=== PATIENT | male | born 1965 | race Caucasian/White ===

== ENCOUNTER 2016-12-24 21:42 | Emergency (ER) | payer BC ==
[~2016-12-24] VITALS: Ht 190.5 cm; Wt 100.0 kg
[~2016-12-24 21:42] MED LIST: ALBU2.5V3 NEB; ASPI325T4 PO; ASPI81TA3 PO; BECL8.7A INH; BENA20TA48 PO; CHLO25CA9 PO; FAMO40TA52 PO; LORA-444 PO; MAG355OR14 PO; MEVA40 PO; NEPH PO
[2016-12-24] MEDS ORDERED: SOD CHLORIDE 0.9% 1,000 ML IV STA (21:48)
[2016-12-24 21:54] VITALS: Ht 190.5 cm; Wt 100.0 kg
[2016-12-24 22:39] LABS: BASOPHIL # 0.2 10^3/ul (0.0-0.1); BASOPHILS % 1.1 % (0.0-2.0); EOSINOPHILS # 0.3 10^3/ul (0.0-0.5); EOSINOPHILS % 2.1 % (0.0-7.0); HEMATOCRIT 50.7 % (42.0-52.0); HEMOGLOBIN 15.9 g/dl (14.0-18.0); LYMPHOCYTES # 2.4 10^3/ul (0.8-2.9); LYMPHOCYTES % 16.3 % (15.0-51.0); MEAN CORPUSCULAR HEMOGLOBIN 28.3 pg (29.0-33.0); MEAN CORPUSCULAR HGB CONC 31.4 g/dl (32.0-37.0); MEAN CORPUSCULAR VOLUME 90.4 fl (82.0-101.0); MEAN PLATELET VOLUME 9.1 fl (7.4-10.4); MONOCYTE # 0.7 10^3/ul (0.3-0.9); MONOCYTES % 4.9 % (0.0-11.0); NEUTROPHIL # 11.3 10^3/ul (1.6-7.5); NEUTROPHILS % 75.1 % (39.0-77.0); PLATELET COUNT 271 10^3/UL (140-415); RED BLOOD COUNT 5.61 10^6/ul (4.70-6.10); RED CELL DISTRIBUTION WIDTH 14.5 % (11.5-14.5)
[2016-12-24] MEDS ORDERED: LIT300 PO (22:39)
[2016-12-24] MEDS ORDERED: QUET100T PO (22:40)
[2016-12-24] MEDS ORDERED: ESCI10TA48 PO (22:43)
[2016-12-24 23:05] LABS: ALANINE AMINOTRANSFERASE 48 IU/L (13-69); ALBUMIN 4.9 g/dl (3.3-4.9); ALBUMIN/GLOBULIN RATIO 1.63; ALKALINE PHOSPHATASE 80 IU/L (42-121); ANION GAP 19 (8-16); ASPARTATE AMINO TRANSFERASE 31 IU/L (15-46); BILIRUBIN,INDIRECT 0.2 mg/dl (0-1.1); BILIRUBIN,TOTAL 0.2 mg/dl (0.2-1.3); BLOOD UREA NITROGEN 12 mg/dl (7-20); CALCIUM 9.5 mg/dl (8.4-10.2); CARBON DIOXIDE 22 mmol/L (21-31); CHLORIDE 110 mmol/L (97-110); CREATININE 0.82 mg/dl (0.61-1.24); GLUCOSE 117 mg/dl (70-220); POTASSIUM 4.6 mmol/L (3.5-5.1); SODIUM 146 mmol/L (135-144); TOTAL PROTEIN 7.9 g/dl (6.1-8.1)
[2016-12-24 23:08] LABS: ACETAMINOPHEN < 10.0 ug/ml (10.0-30.0); SALICYLATE < 1.0 mg/dl (5.0-30.0)
--- NOTE | 2016-12-24 23:20 | ERA ---
ER Documentation Chief Complaint Date/Time DATE: 12/24/16 TIME: 23:17 Chief Complaint suicide attempt with 20 benazipril 20mg and 1 pint of liquor HPI Patient is a 51-year-old male with depression and hypertension who presents with an overdose. The patient overdosed on benazepril 20 mg tablets. He took 30 tablets. He drinks alcohol as well. He was brought in by ambulance and he called 911. He said that he took the pills "a couple of hours ago". He had nausea and vomiting afterwards. This was a suicide attempt because he is recently homeless and his of 25 years left him because of his alcohol abuse. Upon review of old medical records this the patient's 6 visit to the ER since 2014 and review of the emergency department formation exchange system shows been to 5 separate emergency department. ROS All systems reviewed and are negative except as per history of present illness. Medications Home Meds Reported Medications Escitalopram Oxalate* (Escitalopram Oxalate*) 10 Mg Tablet, 10 MG PO DAILY, #30 TAB 12/24/16 Quetiapine Fumarate* (Seroquel*) 100 Mg Tablet, 100 MG PO HS, #30 TAB 12/24/16 [place] Carbonate* ([place]*) 300 Mg Cap, 300 MG PO BID, CAP take 300mg-qam and 600mg-qhs 12/24/16 Lovastatin (Lovastatin) 40 Mg Tablet, 40 MG PO HS, TAB 05/26/15 Benazepril Hcl* (Benazepril Hcl*) 20 Mg Tablet, 20 MG PO DAILY, #30 TAB 05/26/15 Discontinued Reported Medications Beclomethasone Dip* (Qvar 40*) 7.3 Gm Inha, 2 INH BID, #1 INHALER 05/26/15 Albuterol Sulfate* (Albuterol Sulfate* Neb) 0.083%-3 Ml Neb, 1.25 NEB Q3H Y for WHEEZING AND SOB, #30 VIAL 05/26/15 Aspirin* (Aspirin* Chew) 81 Mg Tab.chew, 81 MG PO DAILY, TAB.CHEW 05/26/15 Discontinued Scripts Famotidine* (Famotidine*) 40 Mg Tablet, 40 MG PO HS, #30 TAB Prov:TADEO MAK MD 01/27/16 Mag Hydrox/Al Hydrox/Simeth (Maalox Advanced Suspension) 355 Ml Oral.susp, 2 TSP PO TID for PAIN, #24 OZ Prov:TADEO MAK MD 01/27/16 Aspirin* (Aspirin*) 325 Mg Tablet, 81 MG PO DAILY, #30 TAB Prov:TADEO MAK MD 01/27/16 Chlordiazepoxide* (Chlordiazepoxide*) 25 Mg Capsule, 25 MG PO Q8 Y for CONTROL WITHDRAWAL SYMPTOMS, #15 CAP Prov:TADEO MAK MD 01/27/16 Multivit/Ca Carb/B Cmplx/Fa* ([place]zabel-Paresh*) 1 Tab Tab, 1 TAB PO DAILY for 30 Days , TAB Prov:DARIAN JJ MD 05/28/15 Chlordiazepoxide* (Chlordiazepoxide*) 25 Mg Cap, 25 MG PO BID for 2 Days, CAP Prov:DARIAN JJ MD 05/28/15 Lorazepam* (Ativan*) 2 Mg Tablet, 2 MG PO BID Y for ANXIETY, #7 TAB Prov:MIGEL MALAGON PA-C 04/13/15 Allergies Allergies: Coded Allergies: No Known Allergy (Unverified , 12/24/16) PMhx/Soc History of Surgery: No Anesthesia Reaction: No Hx Neurological Disorder: Yes Hx Respiratory Disorders: No Hx Cardiac Disorders: Yes (htn) Hx Psychiatric Problems: Yes (DEPRESSION, multiple suicide attempts) Hx Miscellaneous Medical Probl: Yes (ETOH ABUSE.) Hx Alcohol Use: Yes (1 pint/daily) Hx Substance Use: No Hx Tobacco Use: Yes Smoking Status: Current every day smoker FmHx Family History: No diabetes Physical Exam Vitals Vital Signs Date Time Temp Pulse Resp B/P Pulse Ox O2 Delivery O2 Flow Rate FiO2 12/24/16 21:54 98.0 80 20 150/95 97 Physical Exam Const: Moderate distress secondary to nausea and vomiting Head: Atraumatic Eyes: Normal Conjunctiva ENT: Normal External Ears, Nose and Mouth. Neck: Full range of motion..~ No meningismus. Resp: Clear to auscultation bilaterally Cardio: Regular rate and rhythm, no murmurs Abd: Soft, non tender, non distended. Normal bowel sounds Skin: No petechiae or rashes Back: No midline or flank tenderness Ext: No cyanosis, or edema Neur: Awake and alert Psych: Positive suicidal ideation with attempt, depressed affect Result Diagram: 12/24/16222712/24/162227 Results 24 hrs Laboratory Tests Test 12/24/16 22:28 White Blood Count 15.010^3/ul Red Blood Count 5.6110^6/ul Hemoglobin 15.9g/dl Hematocrit 50.7% Mean Corpuscular Volume 90.4fl Mean Corpuscular Hemoglobin 28.3pg Mean Corpuscular Hemoglobin Concent 31.4g/dl Red Cell Distribution Width 14.5% Platelet Count 96033^3/UL Mean Platelet Volume 9.1fl Neutrophils % 75.1% Lymphocytes % 16.3% Monocytes % 4.9% Eosinophils % 2.1% Basophils % 1.1% Nucleated Red Blood Cells % 0.0/100WBC Neutrophils # 11.310^3/ul Lymphocytes # 2.410^3/ul Monocytes # 0.710^3/ul Eosinophils # 0.310^3/ul Basophils # 0.210^3/ul Nucleated Red Blood Cells # 0.010^3/ul Sodium Level 146mmol/L Potassium Level 4.6mmol/L Chloride Level 110mmol/L Carbon Dioxide Level 22mmol/L Anion Gap 19 Blood Urea Nitrogen 12mg/dl Creatinine 0.82mg/dl Glucose Level 117mg/dl Calcium Level 9.5mg/dl Total Bilirubin 0.2mg/dl Direct Bilirubin 0.00mg/dl Indirect Bilirubin 0.2mg/dl Aspartate Amino Transf (AST/SGOT) 31IU/L Alanine Aminotransferase (ALT/SGPT) 48IU/L Alkaline Phosphatase 80IU/L Total Protein 7.9g/dl Albumin 4.9g/dl Globulin 3.00g/dl Albumin/Globulin Ratio 1.63 Salicylates Level < 1.0mg/dl Acetaminophen Level < 10.0ug/ml Ethyl Alcohol Level 240.0mg/dl Current Medications Medications (Trade) Dose Ordered Sig/Hawk Route PRN Reason Start Time Stop Time Status Last Admin Dose Admin Sodium Chloride (NS) 1,000 ml @ 1,000 mls/hr Q1H STAT IV 12/24/16 21:48 12/24/16 22:47 DC 12/24/16 22:43 Procedures/MDM EKG read by me, normal sinus rhythm, no ST elevations or depressions, overall impression sinus rhythm. MDM: Patient presents with intentional overdose of benazepril and alcohol. I spoke with poison control who said as long as blood pressure was OK for 2-4 hours that this would be a non toxic ingestion. Patient will need transfer to inpatient psych for further treatment. He is now medically clear. Patient was given 1L NSS for fluid resuscitation. Dr. Berry from psych will do an evaluation. Patient will need repeat alcohol level prior to transfer. Critical care time 35 min excluding all billable procedures. Departure Diagnosis: Primary Impression: Alcohol intoxication Qualified Code: F10.920 - Alcoholic intoxication without complication Additional Impressions: Intentional drug overdose Qualified Code: T50.902A - Intentional drug overdose, initial encounter Suicide attempt by substance overdose Qualified Code: T65.92XA - Suicide attempt by substance overdose, initial encounter Condition: GERARDO Arias MD Dec 24, 2016 23:20
--- NOTE | 2016-12-25 01:48 | PSY ---
Date/Time of Note Date/Time of Note DATE: 12/25/16 TIME: 00:10 Psychiatric Subjective Eval Consent Pt consented to telemedicine: Yes Subjective Evaluation Patient location: emergency Chief Complaint: suicide attempt with 20 benazipril 20mg and 1 pint of liquor Reason for consult: i am suicidal History of present illness patient is a 51 yo male with PPH of depression , anxiety and alcohol dependence who was brought in to the ER due to attempted suicide by overdosing on pills and alcohol. patient states that he wants to because he lost his family and his carreer due to his alcohol abuse. he still wants to and states that he has been feeling depressed, hopeless and helpless for months, he has a place to stay now , he cannot sleep, he is irritable , and anxious, continues to drink alcohol, denies any past or current manic or psychotic symptoms, states that he has tried to kill himself before. he has no motivation for life, for weeks, low energy and racing thoughts. Past psychiatric history depression , anxiety Hospitalization: yes Family History denies Medical history Problems Medical Problems: (1) Abdominal pain Status: Acute (2) Alcohol abuse Status: Acute (3) Alcohol intoxication Status: Acute (4) Alcohol withdrawal syndrome Status: Acute (5) Chest pain Status: Acute (6) Dehydration Status: Acute (7) Encounter for removal of sutures Status: Acute (8) Facial laceration Status: Acute (9) Intentional drug overdose Status: Acute (10) Patient left without being seen Status: Acute (11) Suicide attempt by substance overdose Status: Acute Allergies: Coded Allergies: No Known Allergy (Unverified , 12/24/16) Substance Abuse Substance abuse history: Yes (alcohol ) Prior substance abuse treatmen: Yes Social History Marital status: Level of education: hs DPA/Conservatorship: No Occupation/Group Home: unemployed Psychiatric Objective Eval Review of Systems: Review of Systems: Not Applicable Physical Examination: Physical Examination: Applicable Sleep: Insomnia Appetite: Decreased Energy: Decreased Interest: Decreased Mental Status Examination: Appearance: Disheveled Eye Contact: Good Psychomotor Activity: Normal Behavior: Cooperative Speech: Clear AFFECT: Depressed Mood: Depressed Though Process: Linear Suicidal: Yes Homicidal: No On 72 hour hold: No Orientation: x3 Cognition: Alert Insight: Impared Judgement: Impared Laboratory Results Laboratory Tests Test 10/10/17 22:28 White Blood Count 15.010^3/ul Red Blood Count 5.6110^6/ul Hemoglobin 15.9g/dl Hematocrit 50.7% Mean Corpuscular Volume 90.4fl Mean Corpuscular Hemoglobin 28.3pg Mean Corpuscular Hemoglobin Concent 31.4g/dl Red Cell Distribution Width 14.5% Platelet Count 60620^3/UL Mean Platelet Volume 9.1fl Neutrophils % 75.1% Lymphocytes % 16.3% Monocytes % 4.9% Eosinophils % 2.1% Basophils % 1.1% Nucleated Red Blood Cells % 0.0/100WBC Neutrophils # 11.310^3/ul Lymphocytes # 2.410^3/ul Monocytes # 0.710^3/ul Eosinophils # 0.310^3/ul Basophils # 0.210^3/ul Nucleated Red Blood Cells # 0.010^3/ul Sodium Level 146mmol/L Potassium Level 4.6mmol/L Chloride Level 110mmol/L Carbon Dioxide Level 22mmol/L Anion Gap 19 Blood Urea Nitrogen 12mg/dl Creatinine 0.82mg/dl Glucose Level 117mg/dl Calcium Level 9.5mg/dl Total Bilirubin 0.2mg/dl Direct Bilirubin 0.00mg/dl Indirect Bilirubin 0.2mg/dl Aspartate Amino Transf (AST/SGOT) 31IU/L Alanine Aminotransferase (ALT/SGPT) 48IU/L Alkaline Phosphatase 80IU/L Total Protein 7.9g/dl Albumin 4.9g/dl Globulin 3.00g/dl Albumin/Globulin Ratio 1.63 Salicylates Level < 1.0mg/dl Acetaminophen Level < 10.0ug/ml Ethyl Alcohol Level 240.0mg/dl Assessment and Plan Assessment/Diagnosis [place] I: 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 alcohol dependance anxiety do nos [place] II: deferred [place] III: as per record [place] IV: poor social support [place] V: gaf 25 Recommendation/Plan Medication Management lexapro 10 mg po qd seroquel 100 mg po qhs Follow-up/Disposition Please admit patient on unvoluntary status due to Danger to self, In my opinion, patient currently MEETS criterion for inpatient care and CANNOT be safely treated at a lower level of care today as evidenced by the following risk factors: current suicidal attempt Current and Recent Suicidal Ideation Previous suicide attempt and severe self-destructive behavior Intense feelings of hopelessness and lack of future orientation. Significant recent DETERIORATION in function, behavior and thought processes Substance ABUSE in conjunction with another psychiatric disorder Patient has failed outpatient and requires further inpatient assessment Medication changes require observation unavailable at a lower level of care. 5150 Recommendation: AKASH Tejeda MD Dec 25, 2016 00:20
[2016-12-25 02:07] LABS: BARBITURATES Negative (NEGATIVE); BENZODIAZEPINES Negative (NEGATIVE); CANNABINOIDS Negative (NEGATIVE); COCAINE Negative (NEGATIVE); OPIATES Negative (NEGATIVE)
[2016-12-25] MEDS ORDERED: ONDANSETRON 4 MG INJ IV ONE (02:48)
[2016-12-25 02:58] LABS: ADD UMIC YES; UR ASCORBIC ACID NEGATIVE (NEGATIVE); UR BILIRUBIN (Dip) NEGATIVE (NEGATIVE); UR BLOOD (Dip) 1+ mg/dL (NEGATIVE); UR CLARITY CLEAR (CLEAR); UR COLOR YELLOW (YELLOW); UR GLUCOSE (Dip) NEGATIVE (NEGATIVE); UR KETONES (Dip) NEGATIVE (NEGATIVE); UR LEUKOCYTE ESTERASE (Dip) NEGATIVE Leu/ul (NEGATIVE); UR MUCUS FEW /HPF (NONE SEEN); UR NITRITE (Dip) NEGATIVE (NEGATIVE); UR RBC 7 /HPF (0-5); UR SPECIFIC GRAVITY (Dip) 1.013 (1.003-1.030); UR TOTAL PROTEIN (Dip) NEGATIVE (NEGATIVE); UR UROBILINOGEN (Dip) NEGATIVE (NEGATIVE)
[2016-12-25] MEDS ORDERED: LORAZEPAM 2 MG INJ IV ONE (03:00)
[2016-12-25] MEDS ORDERED: LORAZEPAM 1 MG TAB PO ONE ×3 (09:00→20:00)
[2016-12-25] MEDS ORDERED: ESCITALOPRAM 10 MG TAB PO SCH (09:00)
--- NOTE | 2016-12-25 19:49 | EN ---
Date/Time of Note Date/Time of Note DATE: 12/25/16 TIME: 19:48 ER Progress Note Patient is a 51-year-old male who is on a 5150 and has been accepted to psychiatric facility. The patient reports having alcohol withdrawal and history of alcohol withdrawal seizures. He states that he is currently having visual hallucinations of dark spots in his visual field and feels tremulous. He states that this is consistent with prior episodes of alcohol withdrawal. He has no tremor on exam, appears calm and communicative, and has no tachycardia. I will give him an extra dose of 1 mg Ativan p.o., and will continue monitoring him for signs of withdrawal. I believe he is stable for outpatient treatment for alcohol withdrawal. ISABEL OLIVEIRA MD Dec 25, 2016 19:49
[2016-12-25] MEDS ORDERED: QUETIAPINE 100 MG TAB PO SCH (21:00)
[2016-12-25 22:00] VITALS: BP 130/71; PULSE 72; RESP 16; TEMP 98.8
== END 2016-12-25 22:00 ==
LOC: E/R 21:42
DX: F10.920 Alcohol use, unspecified with intoxication, uncomplicated (principal); T46.4X2A Poisoning by angiotensin-converting-enzyme inhibitors, intentional self-harm, initial encounter; I10 Essential (primary) hypertension; F17.210 Nicotine dependence, cigarettes, uncomplicated; X58.XXXA Exposure to other specified factors, initial encounter; Y92.9 Unspecified place or not applicable; Z79.82 Long term (current) use of aspirin
CPT/HCPCS: 36415; 80053; 80306; 80307; 81001; 85025; 93005; 96374; 96375; 99291; J2060; J2405; J7030; Z7610

== ENCOUNTER 2018-06-28 21:47 | Observation (INO) | payer BC ==
[~2018-06-28] VITALS: Ht 188 cm; Wt 90.4 kg
[~2018-06-28 21:47] MED LIST changes: -ALBU2.5V3 NEB; -ASPI325T4 PO; -ASPI81TA3 PO; -BECL8.7A INH; +BENA20TA4 PO; -BENA20TA48 PO; -CHLO25CA9 PO; +ESCI10TA48 PO; -FAMO40TA52 PO; +LIT300 PO; -LORA-444 PO; -MAG355OR14 PO; -NEPH PO; +QUET100T PO
[2018-06-28 21:48] VITALS: Ht 188 cm; Wt 90.4 kg
[2018-06-28] MEDS ORDERED: ONDANSETRON 4 MG INJ IV STA (23:14)
[2018-06-28] MEDS ORDERED: morphine 4 MG/ML VIAL IV STA (23:14)
[2018-06-29] MEDS ORDERED: ACETAMINOPHEN 325 MG TAB PO ONE (03:00)
--- NOTE | 2018-06-29 05:16 | ERD ---
ER Documentation Chief Complaint Chief Complaint CHEST PAIN RADIATING TO LT ARM, SOB HPI This is a very pleasant 51-year-old chest pain and radiates to his left arm with associated shortness of breath. Pain is mild to moderate intensity no exacerbating relieving factors. No nausea no vomiting. No chills. No other current complaints ROS All systems reviewed and are negative except as per history of present illness. Medications Home Meds Reported Medications Escitalopram Oxalate* (Escitalopram Oxalate*) 10 Mg Tablet, 10 MG PO DAILY, #30 TAB 12/24/16 Quetiapine Fumarate* (Seroquel*) 100 Mg Tablet, 100 MG PO HS, #30 TAB 12/24/16 [place] Carbonate* ([place]*) 300 Mg Cap, 300 MG PO BID, CAP take 300mg-qam and 600mg-qhs 12/24/16 Lovastatin (Lovastatin) 40 Mg Tablet, 40 MG PO HS, TAB 05/26/15 Benazepril Hcl* (Benazepril Hcl*) 20 Mg Tablet, 20 MG PO DAILY, #30 TAB 05/26/15 Allergies Allergies: Coded Allergies: No Known Allergy (Unverified , 12/24/16) PMhx/Soc History of Surgery: No Anesthesia Reaction: No Hx Neurological Disorder: Yes Hx Respiratory Disorders: No Hx Cardiac Disorders: Yes (htn) Hx Psychiatric Problems: Yes (DEPRESSION, multiple suicide attempts) Hx Miscellaneous Medical Probl: Yes (ETOH ABUSE.) Hx Alcohol Use: Yes (1 pint/daily) Hx Substance Use: No Hx Tobacco Use: Yes Smoking Status: Current every day smoker Physical Exam Vitals Vital Signs Date Temp Pulse Resp B/P (MAP) Pulse Ox O2 O2 Flow FiO2 Time Delivery Rate 06/29/18 98.5 61 16 128/81 99 Room Air 04:30 (97) 06/29/18 98.4 64 16 143/86 99 Room Air 04:00 (105) 06/29/18 98.5 67 16 164/98 99 Room Air 03:00 (120) 06/29/18 98.5 69 16 169/103 99 Room Air 02:00 (125) 06/28/18 74 16 154/87 99 Room Air 23:28 (109) 06/28/18 98.5 54 17 181/110 95 21:48 (133) Physical Exam Const: No acute distress Head: Atraumatic Eyes: Normal Conjunctiva ENT: Normal External Ears, Nose and Mouth. Neck: Full range of motion. No meningismus. Resp: Clear to auscultation bilaterally Cardio: Regular rate and rhythm, no murmurs Abd: Soft, non tender, non distended. Normal bowel sounds Skin: No petechiae or rashes Back: No midline or flank tenderness Ext: No cyanosis, or edema Neur: Awake and alert Psych: Normal Mood and Affect Result Diagram: 06/28/18 0140 06/28/18 7341 Results 24 hrs Laboratory Tests Test 06/28/18 22:59 06/28/18 23:50 Sodium Level 136 mmol/L Potassium Level 4.7 mmol/L Chloride Level 102 mmol/L Carbon Dioxide Level 24 mmol/L Anion Gap 10 Blood Urea Nitrogen 13 mg/dl Creatinine 0.69 mg/dl Est Glomerular Filtrat Rate mL/min > 60 mL/min Glucose Level 91 mg/dl Calcium Level 9.3 mg/dl Total Bilirubin 0.5 mg/dl Direct Bilirubin 0.00 mg/dl Indirect Bilirubin 0.5 mg/dl Aspartate Amino Transf (AST/SGOT) 33 IU/L Alanine Aminotransferase (ALT/SGPT) 13 IU/L Alkaline Phosphatase 80 IU/L Troponin I 0.023 ng/ml B-Type Natriuretic Peptide 98 PG/ML Total Protein 7.8 g/dl Albumin 4.4 g/dl Globulin 3.40 g/dl Albumin/Globulin Ratio 1.29 White Blood Count 10.5 10^3/ul Red Blood Count 5.15 10^6/ul Hemoglobin 13.9 g/dl Hematocrit 43.1 % Mean Corpuscular Volume 83.7 fl Mean Corpuscular Hemoglobin 27.0 pg Mean Corpuscular Hemoglobin Concent 32.3 g/dl Red Cell Distribution Width 13.0 % Platelet Count 245 10^3/UL Mean Platelet Volume 7.8 fl Immature Granulocytes % 0.400 % Neutrophils % 60.6 % Lymphocytes % 26.9 % Monocytes % 8.3 % Eosinophils % 2.6 % Basophils % 1.2 % Nucleated Red Blood Cells % 0.0 /100WBC Immature Granulocytes # 0.040 10^3/ul Neutrophils # 6.4 10^3/ul Lymphocytes # 2.8 10^3/ul Monocytes # 0.9 10^3/ul Eosinophils # 0.3 10^3/ul Basophils # 0.1 10^3/ul Nucleated Red Blood Cells # 0.0 10^3/ul Current Medications Medications Dose Sig/Hawk Start Time Status Last (Trade) Ordered Route PRN Stop Time Admin Dose Reason Admin Morphine 4 mg ONCE STAT 06/28/18 DC 06/28/18 Sulfate IV 23:14 23:26 (morphine) 06/28/18 23:17 Ondansetron 4 mg ONCE STAT 06/28/18 DC 06/28/18 HCl (Zofran IV 23:14 23:26 Inj) 06/28/18 23:17 650 mg ONCE ONCE 06/29/18 DC 06/29/18 Acetaminophen PO 03:00 03:07 (Tylenol 06/29/18 03:01 Tab) Procedures/MDM EKG: Rate/Rhythm: [Normal Sinus Rhythm] QRS, ST, T-waves: [No changes consistent w/ acute ischemia] Impression: [No evidence of ischemia or arrhythmia] Chest X-ray 1V Interpreted by me: Soft Tissue: No acute abnormalities Bones: No acute abnormalities Mediastinum/Cardiac Silhouette/Lungs: [No acute abnormalities] Medical decision making: Patient's symptoms are concerning for cardiac cause will require inpatient workup and continuous monitoring. Further w/u for ischemia, arrhythmia, PE or dissection will be deferred to the inpatient team. Accepting Care Team: Current data and ongoing care discussed. Time: 5:10 AM Primary Provider: Dr. Clemons Consulting: [[place]] Outstanding Data: none Departure Diagnosis: Primary Impression: Chest pain Chest pain type: unspecified Qualified Codes: R07.9 - Chest pain, unspecified Condition: Stable STEFANIE HALL Jun 29, 2018 05:16
[2018-06-29 05:38] VITALS: PULSE 68
[2018-06-29 05:40] VITALS: BP 158/99; PULSE 69; RESP 20
[2018-06-29] MEDS: KETOROLAC 15 MG INJ IV PRN ×2 (06:34→12:33)
[2018-06-29 07:45] VITALS: BP 123/65; PULSE 70; RESP 20
[2018-06-29 08:24] VITALS: PULSE 77
[2018-06-29] MEDS ORDERED: ESCITALOPRAM 10 MG TAB PO SCH (09:00)
[2018-06-29] MEDS ORDERED: APIXABAN 5 MG TABLET PO SCH (09:00)
[2018-06-29] MEDS ORDERED: BENAZEPRIL 20 MG TAB PO SCH (09:00)
--- NOTE | 2018-06-29 09:26 | PDOCDIS ---
Discharge Instructions CONDITION [id number] Patient Condition: [id number] Good HOME CARE INSTRUCTIONS: [id number] Diet Instructions: [id number] FOLLOW UP/APPOINTMENTS Follow-up Plan pcp 1 week GAYATHRI VALENTINE MD Jun 29, 2018 09:25
--- NOTE | 2018-06-29 10:03 | HP ---
DATE OF ADMISSION: 06/29/2018 CHIEF COMPLAINT: Chest pain. HISTORY OF PRESENT ILLNESS: This is a 53-year-old male with history of hypertension, paroxysmal atri al fibrillation, and hyperlipidemia, presented to the emergency room with complaint of sharp and stab cass chest pain radiating to his left arm. This was associated with shortness of breath. The patien t reports that he was having palpitations as well and suspects that this was due to rapid atrial fibr illation. The patient has no history of coronary artery disease. He denies any associated nausea, v omiting or diaphoresis. Initial evaluation was unremarkable. EKG shows normal sinus rhythm with no ST-T wave changes. Chest x-ray was unremarkable. PAST MEDICAL HISTORY: 1. Hypertension. 2. Hyperlipidemia. 3. Paroxysmal atrial fibrillation. 4. History of arterial thrombosis. 5. Bipolar affective disorder. 6. Chronic pain syndrome. 7. History of narcotic dependence. MEDICATIONS PRIOR TO ADMISSION: 1. Benazepril 20 mg daily. 2. Lovastatin 40 mg at bedtime. 3. Lexapro 10 mg daily. 4. [place] carbonate 300 mg b.i.d. 5. Seroquel 100 mg at bedtime. 6. Eliquis 5 mg p.o. b.i.d. 7. Methadone 44 mg p.o. daily. SOCIAL HISTORY: The patient lives at home. He has a previous history of narcotic abuse and has been on methadone. He admits to smoking half a pack of cigarettes per day. PHYSICAL EXAMINATION: GENERAL: Well-developed, well-nourished male who is in no apparent distress. VITAL SIGNS: Stable. He is afebrile. HEENT: Extraocular muscles intact. Pupils are equal and reactive to light bilaterally. Sclerae are anicteric. Oropharynx is clear and moist. NECK: Supple, no JVD, no carotid bruits. LUNGS: Clear to auscultation bilaterally. CARDIAC: Regular rate and rhythm. No murmurs or gallops. ABDOMEN: Soft, nontender, nondistended, normoactive bowel sounds. EXTREMITIES: No clubbing, cyanosis, or edema. NEUROLOGICAL: Nonfocal. LABORATORY DATA: CBC and basic metabolic panel are within normal limits. BNP is 98. Troponins are 0.023 and 0.019. ASSESSMENT: A 53-year-old male presenting with; 1. Atypical chest pain. 2. Hypertension. 3. Hyperlipidemia. 4. Paroxysmal atrial fibrillation. 5. History of arterial thrombosis. 6. History of narcotic dependence on methadone. 7. Bipolar affective disorder. PLAN: Place in tele observation, resume home medications. Proceed with the Lexiscan stress test. D ischarge planning if the stress test is normal. Dictated By: GAYATHRI JUSTICE/SHIN Conf#: [id number] DID#: [id number]
[2018-06-29] MEDS ORDERED: REGADENOSON 0.4 MG/5 ML SYG ONE (11:02)
--- NOTE | 2018-06-29 12:03 | CONS ---
Assessment/Plan Assessment/Plan Hospital Course (Demo Recall) Chest pain Paroxysmal atrial fibrillation Hypertension -Patient presents with palpitations with sensation of being in atrial fibrillation. He also complains of sharp chest discomfort and arm pain which later resolved. Current ECG with no significant ischemic abnormalities. Serial cardiac enzymes are negative. Patient plan for Lexiscan nuclear perfusion study. Would also obtain echocardiogram. Would add beta-deepak if no contraindication. Consultation Date/Type/Reason Admit Date/Time Jun 29, 2018 at 02:30 Type of Consult Cardiology Reason for Consultation Chest pain Date/Time of Note DATE: 06/29/18 TIME: 11:58 Hx of Present Illness This is a 54-year-old male with past medical history apparently switch fibrillation, hypertension who presents with palpitations and chest pain. Patient felt that he was having an episode of atrial fibrillation. He does have a history of paroxysmal atrial fibrillation. He then developed sharp chest discomfort as well as left arm pain. Symptoms came on at rest. Patient denies exertional chest pain or shortness of breath. Symptoms slowly improved in the hospital. He is active, he does bike ride or walk at least 2-5 miles daily without exertional chest pain or shortness of breath. 12 point review of systems was performed with all pertinent positives and negatives mentioned above and all else is negative Past Medical History Atrial fibrillation Medical History: hypertension Home Meds Reported Medications Escitalopram Oxalate* (Escitalopram Oxalate*) 10 Mg Tablet, 10 MG PO DAILY, #30 TAB 12/24/16 Quetiapine Fumarate* (Seroquel*) 100 Mg Tablet, 100 MG PO HS, #30 TAB 12/24/16 [place] Carbonate* ([place]*) 300 Mg Cap, 300 MG PO BID, CAP take 300mg-qam and 600mg-qhs 12/24/16 Lovastatin (Lovastatin) 40 Mg Tablet, 40 MG PO HS, TAB 05/26/15 Benazepril Hcl* (Benazepril Hcl*) 20 Mg Tablet, 20 MG PO DAILY, #30 TAB 05/26/15 Medications Current Medications Ketorolac Tromethamine (Toradol) 15 mg Q6H PRN IV PAIN Last administered on 06/29/18at 06:34; Admin Dose 15 MG; Start 06/29/18 at 06:00; Stop 07/02/18 at 05:59 Benazepril HCl (Lotensin) 20 mg DAILY PO Last administered on 06/29/18at 09:06; Admin Dose 20 MG; Start 06/29/18 at 09:00 Quetiapine Fumarate (Seroquel) 100 mg HS PO ; Start 06/29/18 at 21:00 Escitalopram Oxalate (Lexapro) 40 mg DAILY PO ; Start 06/29/18 at 09:00 Methadone HCl (Methadone Liq) 44 mg DAILY PO ; Start 06/29/18 at 12:30 Apixaban (Eliquis) 5 mg BID PO Last administered on 06/29/18at 09:06; Admin Dose 5 MG; Start 06/29/18 at 09:00 Atorvastatin Calcium (Lipitor) 10 mg DAILY@21 PO ; Start 06/29/18 at 21:00 Allergies: Coded Allergies: No Known Allergy (Unverified , 12/24/16) Past Surgical History Thrombectomy Past Surgical Hx: no surgical history Social History Alcohol Use: sober Smoking Status: Current every day smoker Drug Use: other (History of opiates and cocaine use, states he has not used in over a year) Exam/Review of Systems Vital Signs Vitals Vital Signs Date Temp Pulse Resp B/P (MAP) Pulse Ox O2 O2 Flow FiO2 Time Delivery Rate 06/29/18 77 08:24 06/29/18 98.3 20 123/65 93 07:45 (84) 06/29/18 Room Air 05:40 Exam Constitutional: alert, oriented (No apparent distress) Head: normocephalic Respiratory: other (Coarse breath sounds bilaterally, no wheezing) Cardiovascular: regular rate and rhythm (S1-S2 heard) Gastrointestinal: soft, non-tender, bowel sounds Extremities: other (No significant edema) Labs Result Diagram: 06/28/18 8381 06/28/18 9905 Results 24hrs Laboratory Tests Test 06/28/18 22:59 06/28/18 23:50 06/29/18 05:55 Sodium Level 136 Potassium Level 4.7 Chloride Level 102 Carbon Dioxide Level 24 Anion Gap 10 Blood Urea Nitrogen 13 Creatinine 0.69 Est Glomerular Filtrat Rate mL/min > 60 Glucose Level 91 Calcium Level 9.3 Total Bilirubin 0.5 Direct Bilirubin 0.00 Indirect Bilirubin 0.5 Aspartate Amino Transf (AST/SGOT) 33 Alanine Aminotransferase (ALT/SGPT) 13 Alkaline Phosphatase 80 Troponin I 0.023 0.019 B-Type Natriuretic Peptide 98 Total Protein 7.8 Albumin 4.4 Globulin 3.40 H Albumin/Globulin Ratio 1.29 White Blood Count 10.5 # Red Blood Count 5.15 Hemoglobin 13.9 L Hematocrit 43.1 Mean Corpuscular Volume 83.7 Mean Corpuscular Hemoglobin 27.0 L Mean Corpuscular Hemoglobin Concent 32.3 Red Cell Distribution Width 13.0 Platelet Count 245 Mean Platelet Volume 7.8 Immature Granulocytes % 0.400 Neutrophils % 60.6 Lymphocytes % 26.9 Monocytes % 8.3 Eosinophils % 2.6 Basophils % 1.2 Nucleated Red Blood Cells % 0.0 Immature Granulocytes # 0.040 H Neutrophils # 6.4 Lymphocytes # 2.8 Monocytes # 0.9 Eosinophils # 0.3 Basophils # 0.1 Nucleated Red Blood Cells # 0.0 Creatine Kinase 105 Creatine Kinase Index 1.3 Creatinine Kinase MB (Mass) 1.35 Imaging Imaging ECG sinus rhythm, poor R wave progression, inferior Q waves, nonspecific ST abnormalities Medications Medications Current Medications Ketorolac Tromethamine (Toradol) 15 mg Q6H PRN IV PAIN Last administered on 06/29/18at 06:34; Admin Dose 15 MG; Start 06/29/18 at 06:00; Stop 07/02/18 at 05:59 Benazepril HCl (Lotensin) 20 mg DAILY PO Last administered on 06/29/18at 09:06; Admin Dose 20 MG; Start 06/29/18 at 09:00 Quetiapine Fumarate (Seroquel) 100 mg HS PO ; Start 06/29/18 at 21:00 Escitalopram Oxalate (Lexapro) 40 mg DAILY PO ; Start 06/29/18 at 09:00 Methadone HCl (Methadone Liq) 44 mg DAILY PO ; Start 06/29/18 at 12:30 Apixaban (Eliquis) 5 mg BID PO Last administered on 06/29/18at 09:06; Admin Dose 5 MG; Start 06/29/18 at 09:00 Atorvastatin Calcium (Lipitor) 10 mg DAILY@21 PO ; Start 06/29/18 at 21:00 Apolinar Mendoza DO Jun 29, 2018 12:03
[2018-06-29 12:11] VITALS: PULSE 75
[2018-06-29 12:20] VITALS: BP 126/84; PULSE 68; RESP 20
--- NOTE | 2018-06-29 12:26 | RADRPT ---
Echocardiogram Report Patient Name: GINGER CHAVEZPatient ID: [id number] : 1965 (53y 4m)Study Date: 06/29/2018 11:39:02 AM Gender: MAccession #: [id number] Tech: Magaly Marrero RDCS [place] [facility] [place]Physician: APOLINAR MENDOZA Height(Cm): BSA: Weight(Kg): Quality: AdequateAccount #: Procedures: Echocardiographic Report: Transthoracic echocardiogram with complete 2D, M-Mode, and doppler examination. Indications: Chest Pain. Measurements: 2D/M Mode Doppler Measurement Value Normal Range Measurement Value Normal Range LVIDd 2D 4.7 [ 4.2 - 5.8 ] cm AV Peak Wojciech 1.1 [ 100.0 - 170.0 ] cm/sec LVIDs 2D 2.8 [ 2.5 - 4.0 ] cm AV Peak PG 4.0 [ 2.0 - 9.0 ] mmHg LVPWd 2D 1.1 [ 0.6 - 1.0 ] cm LVOT Peak Wojciech 0.8 [ 70.0 - 110.0 ] cm/sec IVSd 2D 1.2 [ 0.6 - 1.0 ] cm LVOT Peak PG 3.0 [ 2.0 - 6.0 ] mmHg AoR Diam 2D 3.3 [ 2.6 - 3.4 ] cm MV E Peak Wojciech 0.6 [ 60.0 - 130.0 ] cm/sec EDV 2D 101.0 [ 62.0 - 150.0 ] ml MV A Peak Wojciech 0.8 [ 100.0 - 120.0 ] cm/sec ESV 2D 28.8 [ 21.0 - 61.0 ] ml MV E/A 0.7 [ 0.8 - 1.5 ] ratio EF 2D 71.5 [ 52.0 - 72.0 ] percent MV Decel Time 222 [ 104 - 258 ] msec LA Dimen 2D 3.9 [ 3.0 - 4.0 ] cm Lat E` Wojciech 0.1 [ 10.0 - 15.0 ] cm/sec Lateral E/E` 4.9 [ 1.0 - 2.0 ] ratio MV E/A 0.7 [ 0.8 - 1.5 ] ratio Findings: Left Ventricle: Normal left ventricular systolic function. Normal left ventricular cavity size. Mild concentric left ventricular hypertrophy. Ejection fraction is visually estimated at 65 %. Tissue Doppler/Mitral Doppler indices are consistent with impaired relaxation (Stage I diastolic dysfunction). Right Ventricle: Normal right ventricular size. Normal right ventricular systolic function. Left Atrium: The left atrium is normal in size. Right Atrium: The right atrium is normal in size. Mitral Valve: Mitral valve leaflets appear mildly thickened. Mild mitral annular calcification. Trace mitral regurgitation. Aortic Valve: Normal appearance of the aortic valve. No significant aortic stenosis or insufficiency. Tricuspid Valve: Normal appearance and function of the tricuspid valve with trace physiologic regurgitation. Pulmonic Valve: Normal pulmonic valve appearance. Pericardium: Normal pericardium with no significant pericardial effusion. Aorta: Normal aortic root. IVC: Normal size and normal respiratory collapse consistent with normal right atrial pressure. Conclusions: Normal left ventricular systolic function. Normal left ventricular cavity size. Mild concentric left ventricular hypertrophy. Ejection fraction is visually estimated at 65 %. Tissue Doppler/Mitral Doppler indices are consistent with impaired relaxation (Stage I diastolic dysfunction). Normal right ventricular size. Normal right ventricular systolic function. The left atrium is normal in size. The right atrium is normal in size. No significant valvular stenosis or regurgitation seen. Normal pericardium with no significant pericardial effusion. Electronically Signed By: Apolinar Mendoza 2018-06-29 12:25:44 PDT
[2018-06-29] MEDS ORDERED: METOPROLOL 25 MG TAB PO SCH (12:30)
[2018-06-29] MEDS ORDERED: METHADONE (1 MG/ML 5 ML PO UD SYG) PO SCH ×2 (12:30)
[2018-06-29] MEDS ORDERED: ATORVASTATIN 10 MG TAB PO SCH (21:00)
[2018-06-29] MEDS ORDERED: QUETIAPINE 100 MG TAB PO SCH (21:00)
== END 2018-06-29 15:44 | disposition home or self-care (01) ==
LOC: E/R 21:47 → TEL 06-29 02:30 → EDBEDREQ 06-29 02:33 → TEL 06-29 05:17
PROVIDERS: ADMIT Internal Medicine; ATTEND Internal Medicine
DX: R07.9 Chest pain, unspecified (principal); I10 Essential (primary) hypertension; I48.91 Unspecified atrial fibrillation; F17.210 Nicotine dependence, cigarettes, uncomplicated; I48.0 Paroxysmal atrial fibrillation; Z79.01 Long term (current) use of anticoagulants
CPT/HCPCS: 36415; 71045; 78452; 80053; 82550; 82553; 83880; 84484; 85025; 93005; 93017; 93306; 96374; 96375; 99285; A9500; A9505; J1885; J2270; J2405; J2785; Z7500; Z7610; G0378